=== PATIENT | male | born 1955 | race Caucasian/White ===

== ENCOUNTER 2021-08-09 16:43 | Inpatient (IN) | payer SELFPAY ==
[2021-08-09] MEDS ORDERED: Acetaminophen 325 MG TAB PO PRN (17:47)
[2021-08-09] MEDS ORDERED: Ondansetron PF 4 MG/2 ML Vial IVP PRN (17:47)
[2021-08-09] MEDS ORDERED: Senokot S 8.6-50 MG TAB PO PRN (17:47)
[2021-08-09] MEDS ORDERED: Bisacodyl 5 MG TAB PO PRN (17:47)
[2021-08-09] MEDS ORDERED: Calcium Carbonate 500 MG ChewTAB PO PRN (17:47)
[2021-08-09] MEDS ORDERED: Benzocaine (Dental) 7 GM TUBE TOP PRN (18:16)
[2021-08-09] MEDS ORDERED: Multivit, Therapeutic 1 TAB PO SCH (18:30)
[2021-08-09] MEDS ORDERED: Folic Acid 1 MG TAB PO SCH (18:30)
[2021-08-09] MEDS ORDERED: Thiamine 100 MG TAB PO SCH (18:30)
[2021-08-09 18:40] VITALS: BMI 28.8
[2021-08-09] MEDS ORDERED: Dextrose 5% in Water 1,000 ML IV PRN (19:12)
[2021-08-09] MEDS ORDERED: Dextrose 50% Abboject 50 ML SYRINGE SLOW IVP PRN (19:12)
[2021-08-09] MEDS ORDERED: HumaLOG 300 UNITS/3 ML VIAL SC PRN ×2 (19:12)
[2021-08-09] MEDS ORDERED: ALPRAZolam 1 MG TAB PO PRN (19:17)
[2021-08-09] MEDS ORDERED: Albuterol 200 PUFF (6.7GM INHALER) INH PRN (19:20)
[2021-08-09] MEDS ORDERED: Sodium Chloride 0.9% 1,000 ML IV SCH (19:30)
[2021-08-09] MEDS ORDERED: Aspirin Chewable 81 MG TAB PO SCH (20:00)
[2021-08-09 20:07] LABS: Troponin I Less than 0.010 ng/mL (< 0.028)
[2021-08-09] MEDS: Atorvastatin Calcium 40 MG TAB PO SCH (21:23)
[2021-08-09] MEDS: Ampicillin/Sulbactam 3 GM in Sodium Chloride 0.9% 100 ML IVPB SCH (23:17)
[2021-08-09 23:48] LABS: Amphetamine Not Detected (NotDetected); Barbiturates Screen Not Detected (NotDetected); Benzodiazepine Screen Not Detected (NotDetected); Cocaine Metabolite Screen Not Detected (NotDetected); Methadone Not Detected (NotDetected); Methamphetamine Not Detected (NotDetected); Opiate Screen Detected (NotDetected); Oxycodone Screen Not Detected (NotDetected); Phencyclidine (PCP) Not Detected (NotDetected); THC/Cannabinoid Screen Detected (NotDetected); Tricyclic Screen Not Detected (NotDetected)
[2021-08-10] MEDS: Ampicillin/Sulbactam 3 GM in Sodium Chloride 0.9% 100 ML IVPB SCH ×4 (05:46→23:33)
[2021-08-10] MEDS: HYDROcodone/Acetaminophen 5/325 mg Tablet PO PRN ×3 (05:52→20:52)
[2021-08-10 06:12] LABS: #Basophils 0.1 thou/uL (0.0-0.2); #Eosinphils 0.2 thou/uL (0.0-0.7); #Lymphocytes 1.8 thou/uL (1.20-3.40); #Monocytes 0.7 thou/uL (0.11-0.59); %Basophils 0.6 % (0.0-1.0); %Eosinophils 1.8 % (0.0-10.0); %Monocytes 6.7 % (0.0-10.0); %Neutrophils 71.9 % (42.0-75.0); Hemoglobin 15.2 g/dL (14.0-18.0); Mean Corpuscular HGB CONC 35.2 g/dL (32.0-36.0); Mean Corpuscular Volume 99.3 fL (78.0-98.0); Mean Platelet Volume 8.1 fL (7.4-10.4); Platelet Count 177 thou/uL (130-400); Red Blood Cell (RBC) Count 4.35 mill/uL (4.70-6.10); White Blood Cell (WBC) Count 9.7 thou/uL (4.8-10.8)
[2021-08-10 06:21] LABS: Hemoglobin A1c 8.1 % (4.0-6.0)
[2021-08-10 06:26] LABS: PTT 37.1 sec (22.9-36.1); Prothrombin Time 13.3 sec (12.0-14.7)
[2021-08-10 06:37] LABS: ALT (SGPT) 13 U/L (8-55); AST (SGOT) 13 U/L (5-34); Albumin 3.7 g/dL (3.4-4.8); Alkaline Phosphatase 68 U/L (40-110); Anion Gap 11 mmol/L (10-20); BUN (Urea Nitrogen) 7 mg/dL (8.4-25.7); Bilirubin, Direct 0.2 mg/dL (0.1-0.3); Bilirubin, Total 0.3 mg/dL (0.2-1.2); Calc. Creatinine Clearance 148 mL/min (70-130); Calcium 9.1 mg/dL (7.8-10.44); Carbon Dioxide 25 mmol/L (23-31); Cardiac Risk 4.3 (Less than 4.5); Chloride 105 mmol/L (98-107); Cholesterol 143 mg/dl (< 200 Desired); Glucose 179 mg/dL (80-115); HDL Cholesterol 33 mg/dL (>60 Neg Risk); LDL Cholesterol, Calculated 81 mg/dL; Magnesium 1.8 mg/dL (1.6-2.6); Phosphorus 3.5 mg/dL (2.3-4.7); Potassium 4.1 mmol/L (3.5-5.1); Protein, Total 6.3 g/dL (5.8-8.1); Sodium 137 mmol/L (136-145); Triglycerides 143 mg/dL (Less than 150)
[2021-08-10 06:39] LABS: Troponin I Less than 0.010 ng/mL (< 0.028)
[2021-08-10 07:00] LABS: Thyroid Stimulating Hormone 1.2222 uIU/mL (0.35-4.94)
[2021-08-10] MEDS: Thiamine 100 MG TAB PO SCH (07:56)
[2021-08-10] MEDS: Aspirin Chewable 81 MG TAB PO SCH (07:56)
[2021-08-10] MEDS: Multivit, Therapeutic 1 TAB PO SCH (07:57)
[2021-08-10] MEDS: Folic Acid 1 MG TAB PO SCH (07:57)
[2021-08-10] MEDS ORDERED: Iopamidol 370 76% 100 ML VIAL ONE (09:04)
[2021-08-10] MEDS: Chlorhexidine Gluconate 15 ML UDCUP SSP SCH (20:49)
[2021-08-10] MEDS: Atorvastatin Calcium 40 MG TAB PO SCH (20:49)
[2021-08-11 04:54] LABS: #Basophils 0.1 thou/uL (0.0-0.2); #Eosinphils 0.3 thou/uL (0.0-0.7); #Lymphocytes 2.3 thou/uL (1.20-3.40); #Monocytes 0.6 thou/uL (0.11-0.59); #Neutrophils 4.8 thou/uL (1.40-6.50); %Basophils 0.8 % (0.0-1.0); %Eosinophils 3.5 % (0.0-10.0); %Lymphocytes 29.1 % (21.0-51.0); %Monocytes 7.5 % (0.0-10.0); %Neutrophils 59.2 % (42.0-75.0); Hemoglobin 14.2 g/dL (14.0-18.0); Mean Corpuscular HGB CONC 34.2 g/dL (32.0-36.0); Mean Corpuscular Hemoglobin 33.8 pg (27.0-31.0); Mean Platelet Volume 7.8 fL (7.4-10.4); Platelet Count 189 thou/uL (130-400); RBC Distribution Width 12.9 % (11.5-14.5); Red Blood Cell (RBC) Count 4.19 mill/uL (4.70-6.10); White Blood Cell (WBC) Count 8.1 thou/uL (4.8-10.8)
[2021-08-11 05:24] LABS: Anion Gap 11 mmol/L (10-20); BUN (Urea Nitrogen) 6 mg/dL (8.4-25.7); Calc. Creatinine Clearance 165 mL/min (70-130); Calcium 8.7 mg/dL (7.8-10.44); Carbon Dioxide 27 mmol/L (23-31); Chloride 103 mmol/L (98-107); Glucose 159 mg/dL (80-115); Magnesium 1.8 mg/dL (1.6-2.6); Phosphorus 3.2 mg/dL (2.3-4.7); Potassium 4.1 mmol/L (3.5-5.1); Sodium 137 mmol/L (136-145)
[2021-08-11] MEDS: Ampicillin/Sulbactam 3 GM in Sodium Chloride 0.9% 100 ML IVPB SCH ×4 (06:10→23:12)
[2021-08-11] MEDS: Ondansetron ODT 4 MG TAB PO PRN (08:02)
[2021-08-11] MEDS: Multivit, Therapeutic 1 TAB PO SCH (08:02)
[2021-08-11] MEDS: HYDROcodone/Acetaminophen 5/325 mg Tablet PO PRN ×3 (08:02→20:32)
[2021-08-11] MEDS: Aspirin Chewable 81 MG TAB PO SCH (08:02)
[2021-08-11] MEDS: Folic Acid 1 MG TAB PO SCH (08:02)
[2021-08-11] MEDS: Thiamine 100 MG TAB PO SCH (08:03)
[2021-08-11] MEDS: Chlorhexidine Gluconate 15 ML UDCUP SSP SCH ×3 (08:31→20:33)
[2021-08-11] MEDS ORDERED: Fioricet 325/50/40 mg Tablet PO PRN (12:35)
[2021-08-11] MEDS: Atorvastatin Calcium 40 MG TAB PO SCH (20:32)
[2021-08-12 04:43] LABS: #Eosinphils 0.4 thou/uL (0.0-0.7); #Lymphocytes 2.4 thou/uL (1.20-3.40); #Monocytes 0.6 thou/uL (0.11-0.59); #Neutrophils 4.7 thou/uL (1.40-6.50); %Basophils 0.4 % (0.0-1.0); %Eosinophils 4.5 % (0.0-10.0); %Lymphocytes 30.1 % (21.0-51.0); %Monocytes 6.9 % (0.0-10.0); %Neutrophils 58.1 % (42.0-75.0); Hemoglobin 14.2 g/dL (14.0-18.0); Mean Corpuscular HGB CONC 33.8 g/dL (32.0-36.0); Mean Corpuscular Hemoglobin 33.5 pg (27.0-31.0); Mean Platelet Volume 7.8 fL (7.4-10.4); Platelet Count 213 thou/uL (130-400); RBC Distribution Width 12.9 % (11.5-14.5); Red Blood Cell (RBC) Count 4.25 mill/uL (4.70-6.10); White Blood Cell (WBC) Count 8.1 thou/uL (4.8-10.8)
[2021-08-12 05:03] LABS: Anion Gap 11 mmol/L (10-20); BUN (Urea Nitrogen) 7 mg/dL (8.4-25.7); Calc. Creatinine Clearance 138 mL/min (70-130); Calcium 9.1 mg/dL (7.8-10.44); Carbon Dioxide 28 mmol/L (23-31); Chloride 101 mmol/L (98-107); Glucose 175 mg/dL (80-115); Magnesium 1.8 mg/dL (1.6-2.6); Phosphorus 3.7 mg/dL (2.3-4.7); Sodium 136 mmol/L (136-145)
[2021-08-12] MEDS: Ampicillin/Sulbactam 3 GM in Sodium Chloride 0.9% 100 ML IVPB SCH ×2 (05:36→11:03)
[2021-08-12] MEDS: HYDROcodone/Acetaminophen 5/325 mg Tablet PO PRN (07:45)
[2021-08-12] MEDS: Ondansetron ODT 4 MG TAB PO PRN (07:45)
[2021-08-12] MEDS: Aspirin Chewable 81 MG TAB PO SCH (07:45)
[2021-08-12] MEDS: Chlorhexidine Gluconate 15 ML UDCUP SSP SCH (07:46)
[2021-08-12] MEDS: Multivit, Therapeutic 1 TAB PO SCH (10:03)
[2021-08-12] MEDS: Folic Acid 1 MG TAB PO SCH (10:03)
[2021-08-12] MEDS: Thiamine 100 MG TAB PO SCH (10:03)
[2021-08-12 11:12] VITALS: BP 105/52; TEMP 97.9
[2021-08-12] MEDS ORDERED: Regadenoson 0.4 MG/5 ML SYRINGE ONE (13:53)
== END 2021-08-12 14:50 | disposition home or self-care (01) | DRG 158 ==
LOC: 2SW 17:34 → OBSVTOIN 17:47
PROVIDERS: ADMIT Family Medicine; ATTEND Hospitalist
DX: K04.7 Periapical abscess without sinus (principal); E87.2 Acidosis; F10.10 Alcohol abuse, uncomplicated; J44.9 Chronic obstructive pulmonary disease, unspecified; E11.65 Type 2 diabetes mellitus with hyperglycemia; I10 Essential (primary) hypertension; F17.210 Nicotine dependence, cigarettes, uncomplicated; J02.9 Acute pharyngitis, unspecified; R79.89 Other specified abnormal findings of blood chemistry; I77.819 Aortic ectasia, unspecified site; E78.2 Mixed hyperlipidemia; R16.0 Hepatomegaly, not elsewhere classified; F41.9 Anxiety disorder, unspecified; F32.A Depression, unspecified; Z79.84 Long term (current) use of oral hypoglycemic drugs; Z90.89 Acquired absence of other organs
CPT/HCPCS: 36415; 36416; 70450; 70486; 76705; 78452; 80048; 80061; 80076; 80306; 82607; 82746; 83036; 83690; 83735; 84100; 84443; 84484; 85025; 85610; 85730; 86850; 86900; 86901; 93017; 93306; A9500; J0295; J1815; J2405; J3490; J7050; Q0162; Q9967

== ENCOUNTER 2023-04-02 01:44 | Inpatient (IN) | payer SELFPAY ==
[2023-04-02 03:35] LABS: Bacteria/HPF None Seen HPF (None Seen); Bilirubin Negative (Negative); Blood, Urine Negative (Negative); CAUTI Indications for Culture Alt mental st,lethar; Clarity Clear (Clear); Glucose, Urine (Dipstick) Greater than 1000 mg/dL (Negative); Ketone, Urine Negative (Negative); Leukocyte Negative Leu/uL (Negative); Nitrite Negative (Negative); Protein, Urine (Dipstick) Negative (Neg-Trace); RBC/HPF 0-3 HPF (0-3); Specific Gravity, Urine 1.003 (1.002-1.036); Squamous Epithelial None Seen HPF (0-3); Urobilinogen Normal mg/dL (Less than 2); WBC/HPF 0-3 HPF (0-3); pH, Urine 5.5 (5.0-9.0)
[2023-04-02 03:40] LABS: Urine Culture Reflex No No
[2023-04-02 03:42] LABS: Troponin I Less than 0.010 ng/mL (< 0.028)
[2023-04-02 03:45] LABS: Magnesium 1.8 mg/dL (1.6-2.6)
[2023-04-02 06:49] LABS: Troponin I Less than 0.010 ng/mL (< 0.028)
[2023-04-02 07:47] VITALS: BMI 32.4
[2023-04-02] MEDS ORDERED: Acetaminophen 325 MG TAB PO PRN (07:57)
[2023-04-02] MEDS ORDERED: Ondansetron ODT 4 MG TAB PO PRN (08:00)
[2023-04-02] MEDS ORDERED: Lorazepam 2 MG/ML VIAL IM PRN (08:00)
[2023-04-02] MEDS ORDERED: Electrolyte Replacement Protocol 1 EACH FS SCH (08:00)
[2023-04-02] MEDS ORDERED: Lorazepam 1 MG TAB PO PRN (08:00)
[2023-04-02] MEDS ORDERED: Electrolyte Replacement Protocol FS PRN (08:15)
[2023-04-02] MEDS ORDERED: Magnesium 2 GM/50 ML(in water) 2 GM in Premix 1 BAG IVPB SCH (08:15)
[2023-04-02] MEDS ORDERED: Piperacillin/Tazobactam 3.375 GM in Sodium Chloride 0.9% 100 ML IVPB SCH (08:15)
[2023-04-02] MEDS ORDERED: Folic Acid 1 MG TAB ONE (08:21)
[2023-04-02] MEDS ORDERED: Nicotine 14 MG PATCH ONE (08:21)
[2023-04-02] MEDS ORDERED: Thiamine HCl 200 MG/2 ML VIAL ONE (08:21)
[2023-04-02] MEDS ORDERED: Lorazepam 1 MG TAB ONE (08:21)
[2023-04-02] MEDS ORDERED: Multivit, Therapeutic 1 TAB ONE (08:21)
[2023-04-02] MEDS ORDERED: Magnesium 2 GM/50 ML BAG (IN WATER) ONE (08:22)
[2023-04-02] MEDS: Lactated Ringer's 1,000 ML IV SCH ×2 (08:26→16:24)
[2023-04-02] MEDS: Multivit, Therapeutic 1 TAB PO SCH (08:29)
[2023-04-02] MEDS: Lorazepam 1 MG TAB PO SCH ×3 (08:29→21:13)
[2023-04-02] MEDS: Nicotine 14 MG PATCH TD SCH (08:29)
[2023-04-02] MEDS: Folic Acid 1 MG TAB PO SCH (08:29)
[2023-04-02] MEDS: Thiamine HCl 200 MG/2 ML VIAL SLOW IVP SCH (08:30)
[2023-04-02] MEDS ORDERED: Glucagon 1 MG/ML KIT IM PRN (08:33)
[2023-04-02] MEDS ORDERED: Dextrose 5% in Water 1,000 ML IV PRN (08:33)
[2023-04-02] MEDS ORDERED: Dextrose 50% Abboject 50 ML SYRINGE SLOW IVP PRN (08:33)
[2023-04-02] MEDS ORDERED: Sodium Chloride 0.9% 100 ML ONE (08:44)
[2023-04-02] MEDS ORDERED: Piperacillin/Tazobactam 3.375 GM VIAL ONE (08:44)
[2023-04-02] MEDS: Sodium Chloride 0.9% 1,000 ML IV SCH ×2 (09:07→21:13)
[2023-04-02 09:10] LABS: Hemoglobin A1c 8.5 % (4.0-6.0)
[2023-04-02 09:22] LABS: Troponin I Less than 0.010 ng/mL (< 0.028)
[2023-04-02] MEDS: Piperacillin/Tazobactam 3.375 GM in Sodium Chloride 0.9% 100 ML IVPB SCH ×2 (13:18→21:13)
[2023-04-02] MEDS ORDERED: FLU VACC QS2023(65UP)/MF59C/PF 60 MCG/0.5 ML SYRINGE IM ONE (17:45)
[2023-04-02] MEDS ORDERED: Simvastatin 10 MG TAB PO SCH (18:15)
[2023-04-02] MEDS: ALPRAZolam 1 MG TAB PO PRN (18:26)
[2023-04-02] MEDS: Sertraline 100 MG TAB PO SCH (18:32)
[2023-04-02] MEDS: Metoprolol Tartrate 25 MG TAB PO SCH (18:32)
[2023-04-02] MEDS ORDERED: Ipratropium/Albuterol 3 ML NEB NEB PRN (18:41)
[2023-04-02] MEDS: traMADol HCl 50 MG TAB PO PRN (21:30)
[2023-04-03] MEDS: Lorazepam 1 MG TAB PO SCH ×4 (02:57→20:44)
[2023-04-03] MEDS: traMADol HCl 50 MG TAB PO PRN ×4 (03:00→22:31)
[2023-04-03 05:01] LABS: Anion Gap 13 mmol/L (10-20); BUN (Urea Nitrogen) 5 mg/dL (8.4-25.7); Calc. Creatinine Clearance 162 mL/min (70-130); Calcium 8.1 mg/dL (7.8-10.44); Carbon Dioxide 25 mmol/L (23-31); Chloride 100 mmol/L (98-107); Estimated GFR 104; Glucose 238 mg/dL (80-115); Potassium 4.5 mmol/L (3.5-5.1); Sodium 133 mmol/L (136-145)
[2023-04-03] MEDS: Piperacillin/Tazobactam 3.375 GM in Sodium Chloride 0.9% 100 ML IVPB SCH ×2 (05:36→13:21)
[2023-04-03] MEDS: HumaLOG 300 UNITS/3 ML VIAL SC PRN ×3 (06:09→18:18)
[2023-04-03 07:25] LABS: #Basophils 0.1 thou/uL (0.0-0.2); #Eosinphils 0.2 thou/uL (0.0-0.7); #Monocytes 0.6 thou/uL (0.11-0.59); #Neutrophils 5.4 thou/uL (1.40-6.50); %Basophils 0.7 % (0.0-1.0); %Eosinophils 2.6 % (0.0-10.0); %Lymphocytes 12.1 % (21.0-51.0); %Monocytes 8.9 % (0.0-10.0); %Neutrophils 75.1 % (42.0-75.0); Hematocrit 41.2 % (42.0-52.0); Hemoglobin 14.2 g/dL (14.0-18.0); Mean Corpuscular HGB CONC 34.5 g/dL (32.0-36.0); Mean Corpuscular Hemoglobin 36.1 pg (27.0-31.0); Mean Corpuscular Volume 104.8 fl (78.0-98.0); Platelet Count 122 10x3/uL (130-400); RBC Distribution Width 12.6 % (11.5-14.5); Red Blood Cell (RBC) Count 3.93 mill/uL (4.70-6.10); White Blood Cell (WBC) Count 7.2 10x3/uL (4.8-10.8)
[2023-04-03] MEDS ORDERED: Magnesium 2 GM/50 ML(in water) 2 GM in Premix 1 BAG IVPB SCH (08:00)
[2023-04-03] MEDS: Metoprolol Tartrate 25 MG TAB PO SCH ×2 (08:21→22:19)
[2023-04-03] MEDS: ALPRAZolam 1 MG TAB PO PRN (08:22)
[2023-04-03] MEDS: Lorazepam 1 MG TAB PO PRN ×2 (08:23→18:18)
[2023-04-03] MEDS: Thiamine HCl 200 MG/2 ML VIAL SLOW IVP SCH (08:23)
[2023-04-03] MEDS: Multivit, Therapeutic 1 TAB PO SCH (08:23)
[2023-04-03] MEDS: Sertraline 100 MG TAB PO SCH (08:24)
[2023-04-03] MEDS: Folic Acid 1 MG TAB PO SCH (08:24)
[2023-04-03] MEDS: Nicotine 14 MG PATCH TD SCH (08:25)
[2023-04-03] MEDS ORDERED: TETANUS, DIPHTHERIA TOX,ADULT (TDVAX) 0.5 ML VIAL IM ONE (13:19)
[2023-04-03] MEDS: Ampicillin/Sulbactam 3 GM in Sodium Chloride 0.9% 100 ML IVPB SCH (18:17)
[2023-04-03] MEDS: Simvastatin 10 MG TAB PO SCH (22:20)
[2023-04-04] MEDS: Lorazepam 1 MG TAB PO PRN (00:13)
[2023-04-04] MEDS: Ampicillin/Sulbactam 3 GM in Sodium Chloride 0.9% 100 ML IVPB SCH ×5 (00:14→23:58)
[2023-04-04] MEDS: Lorazepam 1 MG TAB PO SCH ×2 (03:16→08:11)
[2023-04-04] MEDS: traMADol HCl 50 MG TAB PO PRN ×3 (03:16→23:58)
[2023-04-04 05:52] LABS: #Eosinphils 0.2 thou/uL (0.0-0.7); #Monocytes 0.7 thou/uL (0.11-0.59); #Neutrophils 5.9 thou/uL (1.40-6.50); %Basophils 0.5 % (0.0-1.0); %Eosinophils 2.8 % (0.0-10.0); %Lymphocytes 12.8 % (21.0-51.0); %Monocytes 8.4 % (0.0-10.0); Hematocrit 40.3 % (42.0-52.0); Hemoglobin 14.3 g/dL (14.0-18.0); Mean Corpuscular HGB CONC 35.5 g/dL (32.0-36.0); Mean Corpuscular Hemoglobin 36.4 pg (27.0-31.0); Mean Corpuscular Volume 102.5 fl (78.0-98.0); Mean Platelet Volume 10.5 fL (7.4-10.4); Platelet Count 148 10x3/uL (130-400); RBC Distribution Width 12.2 % (11.5-14.5); Red Blood Cell (RBC) Count 3.93 mill/uL (4.70-6.10); White Blood Cell (WBC) Count 7.8 10x3/uL (4.8-10.8)
[2023-04-04] MEDS: HumaLOG 300 UNITS/3 ML VIAL SC PRN ×2 (06:21→20:50)
[2023-04-04 07:54] LABS: Anion Gap 14 mmol/L (10-20); BUN (Urea Nitrogen) 5 mg/dL (8.4-25.7); Calc. Creatinine Clearance 169 mL/min (70-130); Calcium 8.2 mg/dL (7.8-10.44); Carbon Dioxide 23 mmol/L (23-31); Chloride 96 mmol/L (98-107); Estimated GFR 106; Glucose 217 mg/dL (80-115); Potassium 3.9 mmol/L (3.5-5.1); Sodium 129 mmol/L (136-145)
[2023-04-04] MEDS ORDERED: Lorazepam 1 MG TAB PO PRN (08:01)
[2023-04-04] MEDS: Multivit, Therapeutic 1 TAB PO SCH (08:10)
[2023-04-04] MEDS: Metoprolol Tartrate 25 MG TAB PO SCH ×2 (08:10→20:31)
[2023-04-04] MEDS: Nicotine 14 MG PATCH TD SCH (08:10)
[2023-04-04] MEDS: Thiamine HCl 200 MG/2 ML VIAL SLOW IVP SCH (08:10)
[2023-04-04] MEDS: Sertraline 100 MG TAB PO SCH (08:11)
[2023-04-04] MEDS: Folic Acid 1 MG TAB PO SCH (08:11)
[2023-04-04] MEDS ORDERED: Iopamidol 370 76% 100 ML VIAL ONE (10:45)
[2023-04-04] MEDS: ALPRAZolam 1 MG TAB PO PRN (11:51)
[2023-04-04] MEDS: chlordiazePOXIDE HCl 25 MG CAP PO SCH ×2 (13:48→20:31)
[2023-04-04] MEDS ORDERED: CEFAZOLIN 2 GM in Sodium Chloride 0.9% 100 ML IVPB SCH (15:00)
[2023-04-04] MEDS: Simvastatin 10 MG TAB PO SCH (20:31)
[2023-04-05 05:50] LABS: #Basophils 0.1 thou/uL (0.0-0.2); #Eosinphils 0.3 thou/uL (0.0-0.7); #Monocytes 0.6 thou/uL (0.11-0.59); #Neutrophils 4.2 thou/uL (1.40-6.50); %Basophils 0.9 % (0.0-1.0); %Monocytes 8.3 % (0.0-10.0); %Neutrophils 63.2 % (42.0-75.0); Hematocrit 41.5 % (42.0-52.0); Hemoglobin 14.5 g/dL (14.0-18.0); Mean Corpuscular HGB CONC 34.9 g/dL (32.0-36.0); Mean Corpuscular Hemoglobin 35.7 pg (27.0-31.0); Mean Corpuscular Volume 102.2 fl (78.0-98.0); Mean Platelet Volume 9.9 fL (7.4-10.4); Platelet Count 154 10x3/uL (130-400); RBC Distribution Width 12.4 % (11.5-14.5); Red Blood Cell (RBC) Count 4.06 mill/uL (4.70-6.10); White Blood Cell (WBC) Count 6.7 10x3/uL (4.8-10.8)
[2023-04-05 06:13] LABS: Anion Gap 13 mmol/L (10-20); BUN (Urea Nitrogen) 6 mg/dL (8.4-25.7); Calc. Creatinine Clearance 162 mL/min (70-130); Calcium 8.4 mg/dL (7.8-10.44); Carbon Dioxide 26 mmol/L (23-31); Chloride 98 mmol/L (98-107); Estimated GFR 104; Glucose 154 mg/dL (80-115); Potassium 3.9 mmol/L (3.5-5.1); Sodium 133 mmol/L (136-145)
[2023-04-05] MEDS: Ampicillin/Sulbactam 3 GM in Sodium Chloride 0.9% 100 ML IVPB SCH ×3 (07:15→17:40)
[2023-04-05] MEDS ORDERED: Lorazepam 0.5 MG TAB PO PRN (08:01)
[2023-04-05] MEDS: ALPRAZolam 1 MG TAB PO PRN (08:49)
[2023-04-05] MEDS: Folic Acid 1 MG TAB PO SCH (08:50)
[2023-04-05] MEDS: Sertraline 100 MG TAB PO SCH (08:50)
[2023-04-05] MEDS: Nicotine 14 MG PATCH TD SCH (08:50)
[2023-04-05] MEDS: chlordiazePOXIDE HCl 25 MG CAP PO SCH ×3 (08:50→20:55)
[2023-04-05] MEDS: Metoprolol Tartrate 25 MG TAB PO SCH ×2 (08:50→20:55)
[2023-04-05] MEDS: Multivit, Therapeutic 1 TAB PO SCH (08:50)
[2023-04-05] MEDS: Thiamine 100 MG TAB PO SCH (08:50)
[2023-04-05] MEDS: HumaLOG 300 UNITS/3 ML VIAL SC PRN (17:05)
[2023-04-05] MEDS: Simvastatin 10 MG TAB PO SCH (20:55)
[2023-04-05] MEDS: traMADol HCl 50 MG TAB PO PRN (21:27)
[2023-04-06] MEDS: Ampicillin/Sulbactam 3 GM in Sodium Chloride 0.9% 100 ML IVPB SCH ×4 (00:43→18:13)
[2023-04-06 05:43] LABS: #Basophils 0.1 thou/uL (0.0-0.2); #Eosinphils 0.3 thou/uL (0.0-0.7); #Monocytes 0.7 thou/uL (0.11-0.59); #Neutrophils 3.7 thou/uL (1.40-6.50); %Basophils 0.8 % (0.0-1.0); %Eosinophils 3.9 % (0.0-10.0); %Lymphocytes 26.5 % (21.0-51.0); %Monocytes 11.2 % (0.0-10.0); Hematocrit 41.4 % (42.0-52.0); Hemoglobin 14.4 g/dL (14.0-18.0); Mean Corpuscular HGB CONC 34.8 g/dL (32.0-36.0); Mean Corpuscular Volume 103.5 fl (78.0-98.0); Mean Platelet Volume 9.9 fL (7.4-10.4); Platelet Count 175 10x3/uL (130-400); RBC Distribution Width 12.5 % (11.5-14.5); White Blood Cell (WBC) Count 6.5 10x3/uL (4.8-10.8)
[2023-04-06 06:09] LABS: Anion Gap 11 mmol/L (10-20); BUN (Urea Nitrogen) 7 mg/dL (8.4-25.7); Calc. Creatinine Clearance 162 mL/min (70-130); Calcium 8.5 mg/dL (7.8-10.44); Carbon Dioxide 29 mmol/L (23-31); Chloride 98 mmol/L (98-107); Estimated GFR 104; Glucose 200 mg/dL (80-115); Potassium 3.5 mmol/L (3.5-5.1); Sodium 134 mmol/L (136-145)
[2023-04-06] MEDS: chlordiazePOXIDE HCl 25 MG CAP PO SCH ×3 (08:57→19:45)
[2023-04-06] MEDS: Nicotine 14 MG PATCH TD SCH (08:57)
[2023-04-06] MEDS: Multivit, Therapeutic 1 TAB PO SCH (08:59)
[2023-04-06] MEDS: Metoprolol Tartrate 25 MG TAB PO SCH ×2 (08:59→19:45)
[2023-04-06] MEDS: Thiamine 100 MG TAB PO SCH (08:59)
[2023-04-06] MEDS: Sertraline 100 MG TAB PO SCH (08:59)
[2023-04-06] MEDS: Folic Acid 1 MG TAB PO SCH (09:00)
[2023-04-06] MEDS: Potassium Chloride 20 MEQ in Premix 1 BAG IVPB SCH ×2 (09:01→11:19)
[2023-04-06] MEDS: traMADol HCl 50 MG TAB PO PRN ×2 (09:06→19:46)
[2023-04-06] MEDS: ALPRAZolam 1 MG TAB PO PRN (12:16)
[2023-04-06] MEDS: HumaLOG 300 UNITS/3 ML VIAL SC PRN ×3 (12:17→19:49)
[2023-04-06] MEDS: Simvastatin 10 MG TAB PO SCH (19:45)
[2023-04-07] MEDS: Ampicillin/Sulbactam 3 GM in Sodium Chloride 0.9% 100 ML IVPB SCH ×4 (00:05→18:00)
[2023-04-07] MEDS: HumaLOG 300 UNITS/3 ML VIAL SC PRN ×4 (05:55→21:03)
[2023-04-07 08:33] LABS: #Eosinphils 0.2 thou/uL (0.0-0.7); #Monocytes 0.6 thou/uL (0.11-0.59); #Neutrophils 3.8 thou/uL (1.40-6.50); %Basophils 0.7 % (0.0-1.0); %Eosinophils 3.3 % (0.0-10.0); %Lymphocytes 20.6 % (21.0-51.0); %Monocytes 10.7 % (0.0-10.0); %Neutrophils 64.2 % (42.0-75.0); Hematocrit 40.6 % (42.0-52.0); Hemoglobin 14.2 g/dL (14.0-18.0); Mean Corpuscular Hemoglobin 36.1 pg (27.0-31.0); Mean Corpuscular Volume 103.3 fl (78.0-98.0); Mean Platelet Volume 9.6 fL (7.4-10.4); Platelet Count 176 10x3/uL (130-400); RBC Distribution Width 12.4 % (11.5-14.5); Red Blood Cell (RBC) Count 3.93 mill/uL (4.70-6.10)
[2023-04-07] MEDS: Multivit, Therapeutic 1 TAB PO SCH (08:41)
[2023-04-07] MEDS: Nicotine 14 MG PATCH TD SCH (08:41)
[2023-04-07] MEDS: Metoprolol Tartrate 25 MG TAB PO SCH ×2 (08:41→21:01)
[2023-04-07] MEDS: chlordiazePOXIDE HCl 25 MG CAP PO SCH ×3 (08:41→21:00)
[2023-04-07] MEDS: Folic Acid 1 MG TAB PO SCH (08:41)
[2023-04-07] MEDS: Thiamine 100 MG TAB PO SCH (08:42)
[2023-04-07] MEDS: Sertraline 100 MG TAB PO SCH (08:42)
[2023-04-07] MEDS: ALPRAZolam 1 MG TAB PO PRN (08:46)
[2023-04-07 08:58] LABS: Anion Gap 13 mmol/L (10-20); BUN (Urea Nitrogen) 6 mg/dL (8.4-25.7); Calc. Creatinine Clearance 146 mL/min (70-130); Calcium 8.4 mg/dL (7.8-10.44); Carbon Dioxide 26 mmol/L (23-31); Chloride 99 mmol/L (98-107); Estimated GFR 101; Glucose 266 mg/dL (80-115); Potassium 3.9 mmol/L (3.5-5.1); Sodium 134 mmol/L (136-145)
[2023-04-07] MEDS ORDERED: Losartan 25 MG TAB PO SCH (17:15)
[2023-04-07] MEDS: traMADol HCl 50 MG TAB PO PRN (18:11)
[2023-04-07] MEDS: Heparin 5,000 UNITS/ML VIAL SC SCH (21:00)
[2023-04-07] MEDS: Simvastatin 10 MG TAB PO SCH (21:00)
[2023-04-08] MEDS: Ampicillin/Sulbactam 3 GM in Sodium Chloride 0.9% 100 ML IVPB SCH ×4 (00:33→17:47)
[2023-04-08] MEDS: traMADol HCl 50 MG TAB PO PRN ×3 (01:22→20:44)
[2023-04-08] MEDS: HumaLOG 300 UNITS/3 ML VIAL SC PRN ×4 (05:21→20:50)
[2023-04-08 07:34] LABS: #Basophils 0.1 thou/uL (0.0-0.2); #Eosinphils 0.2 thou/uL (0.0-0.7); #Monocytes 0.7 thou/uL (0.11-0.59); #Neutrophils 3.5 thou/uL (1.40-6.50); %Basophils 0.8 % (0.0-1.0); %Eosinophils 3.7 % (0.0-10.0); %Lymphocytes 27.7 % (21.0-51.0); %Neutrophils 56.2 % (42.0-75.0); Hematocrit 42.2 % (42.0-52.0); Hemoglobin 14.8 g/dL (14.0-18.0); Mean Corpuscular HGB CONC 35.1 g/dL (32.0-36.0); Mean Corpuscular Hemoglobin 35.6 pg (27.0-31.0); Mean Corpuscular Volume 101.4 fl (78.0-98.0); Mean Platelet Volume 9.8 fL (7.4-10.4); Platelet Count 185 10x3/uL (130-400); RBC Distribution Width 12.2 % (11.5-14.5); Red Blood Cell (RBC) Count 4.16 mill/uL (4.70-6.10); White Blood Cell (WBC) Count 6.2 10x3/uL (4.8-10.8)
[2023-04-08 07:59] LABS: ALT (SGPT) 50 U/L (8-55); AST (SGOT) 54 U/L (5-34); Albumin 3.4 g/dL (3.4-4.8); Alkaline Phosphatase 76 U/L (40-110); Anion Gap 11 mmol/L (10-20); BUN (Urea Nitrogen) 6 mg/dL (8.4-25.7); Bilirubin, Total 0.7 mg/dL (0.2-1.2); Calc. Creatinine Clearance 164 mL/min (70-130); Calcium 8.5 mg/dL (7.8-10.44); Carbon Dioxide 27 mmol/L (23-31); Cardiac Risk 3.3 (Less than 4.5); Chloride 102 mmol/L (98-107); Cholesterol 130 mg/dl (< 200 Desired); Estimated GFR 105; Globulin 2.5 g/dL (2.4-3.5); Glucose 179 mg/dL (80-115); HDL Cholesterol 39 mg/dL (>60 Neg Risk); LDL Cholesterol, Calculated 71 mg/dL; Magnesium 1.9 mg/dL (1.6-2.6); Potassium 3.7 mmol/L (3.5-5.1); Protein, Total 5.9 g/dL (5.8-8.1); Sodium 136 mmol/L (136-145); Triglycerides 102 mg/dL (Less than 150)
[2023-04-08] MEDS: Nicotine 14 MG PATCH TD SCH (09:02)
[2023-04-08] MEDS: Metoprolol Tartrate 25 MG TAB PO SCH ×2 (09:02→20:37)
[2023-04-08] MEDS: Alogliptin 25 MG TAB PO SCH (09:02)
[2023-04-08] MEDS: Thiamine 100 MG TAB PO SCH (09:03)
[2023-04-08] MEDS: Folic Acid 1 MG TAB PO SCH (09:03)
[2023-04-08] MEDS: Sertraline 100 MG TAB PO SCH (09:03)
[2023-04-08] MEDS: chlordiazePOXIDE HCl 25 MG CAP PO SCH ×3 (09:03→20:36)
[2023-04-08] MEDS: Losartan 25 MG TAB PO SCH (09:03)
[2023-04-08] MEDS: Heparin 5,000 UNITS/ML VIAL SC SCH ×2 (09:04→20:37)
[2023-04-08] MEDS: Multivit, Therapeutic 1 TAB PO SCH (09:14)
[2023-04-08] MEDS ORDERED: Magnesium 2 GM/50 ML(in water) 2 GM in Premix 1 BAG IVPB SCH (11:15)
[2023-04-08] MEDS: ALPRAZolam 1 MG TAB PO PRN (17:49)
[2023-04-08] MEDS: Simvastatin 10 MG TAB PO SCH (20:36)
[2023-04-09] MEDS: Ampicillin/Sulbactam 3 GM in Sodium Chloride 0.9% 100 ML IVPB SCH ×3 (00:20→12:15)
[2023-04-09] MEDS: HumaLOG 300 UNITS/3 ML VIAL SC PRN ×3 (05:46→12:31)
[2023-04-09 06:27] LABS: #Basophils 0.1 thou/uL (0.0-0.2); #Eosinphils 0.2 thou/uL (0.0-0.7); #Monocytes 0.8 thou/uL (0.11-0.59); #Neutrophils 4.1 thou/uL (1.40-6.50); %Basophils 0.8 % (0.0-1.0); %Eosinophils 3.4 % (0.0-10.0); %Lymphocytes 26.2 % (21.0-51.0); Hematocrit 44.4 % (42.0-52.0); Hemoglobin 15.2 g/dL (14.0-18.0); Mean Corpuscular HGB CONC 34.2 g/dL (32.0-36.0); Mean Corpuscular Hemoglobin 35.2 pg (27.0-31.0); Mean Corpuscular Volume 102.8 fl (78.0-98.0); Mean Platelet Volume 10.2 fL (7.4-10.4); Platelet Count 196 10x3/uL (130-400); RBC Distribution Width 12.2 % (11.5-14.5); Red Blood Cell (RBC) Count 4.32 mill/uL (4.70-6.10); White Blood Cell (WBC) Count 7.1 10x3/uL (4.8-10.8)
[2023-04-09 06:51] LABS: Anion Gap 12 mmol/L (10-20); BUN (Urea Nitrogen) 6 mg/dL (8.4-25.7); Calc. Creatinine Clearance 153 mL/min (70-130); Calcium 8.4 mg/dL (7.8-10.44); Carbon Dioxide 24 mmol/L (23-31); Chloride 103 mmol/L (98-107); Estimated GFR 102; Glucose 191 mg/dL (80-115); Magnesium 1.9 mg/dL (1.6-2.6); Phosphorus 3.3 mg/dL (2.3-4.7); Potassium 4.1 mmol/L (3.5-5.1); Sodium 135 mmol/L (136-145)
[2023-04-09 09:01] VITALS: BP 146/79; TEMP 98.1
[2023-04-09] MEDS: Nicotine 14 MG PATCH TD SCH (12:16)
[2023-04-09] MEDS: Metoprolol Tartrate 25 MG TAB PO SCH (12:16)
[2023-04-09] MEDS: Heparin 5,000 UNITS/ML VIAL SC SCH (12:16)
[2023-04-09] MEDS: Folic Acid 1 MG TAB PO SCH (12:16)
[2023-04-09] MEDS: Multivit, Therapeutic 1 TAB PO SCH (12:16)
[2023-04-09] MEDS: chlordiazePOXIDE HCl 25 MG CAP PO SCH ×2 (12:16→16:36)
[2023-04-09] MEDS: Alogliptin 25 MG TAB PO SCH (12:16)
[2023-04-09] MEDS: Sertraline 100 MG TAB PO SCH (12:16)
[2023-04-09] MEDS: Thiamine 100 MG TAB PO SCH (12:16)
[2023-04-09] MEDS: Losartan 25 MG TAB PO SCH (12:16)
[2023-04-09] MEDS: ALPRAZolam 1 MG TAB PO PRN (13:56)
[2023-04-09] MEDS ORDERED: Magnesium 2 GM/50 ML(in water) 2 GM in Premix 1 BAG IVPB SCH (14:15)
== END 2023-04-09 16:15 | disposition home or self-care (01) | DRG 603 ==
LOC: ERS 01:44 → ERHOLD 05:34 → 2SE 12:05 → MSONC 04-05 10:37
PROVIDERS: ADMIT Student in an Organized Health Care Education/Training Program; ATTEND Hospitalist
PROC: 3E0234Z Introduction of Serum, Toxoid and Vaccine into Muscle, Percutaneous Approach (ICD-10-PCS; principal; 2023-04-03)
DX: L03.114 Cellulitis of left upper limb (principal); F10.139 Alcohol abuse with withdrawal, unspecified; E11.9 Type 2 diabetes mellitus without complications; I10 Essential (primary) hypertension; E78.5 Hyperlipidemia, unspecified; J44.9 Chronic obstructive pulmonary disease, unspecified; F41.9 Anxiety disorder, unspecified; S41.152A Open bite of left upper arm, initial encounter; K42.9 Umbilical hernia without obstruction or gangrene; R14.0 Abdominal distension (gaseous); F32.A Depression, unspecified; F17.210 Nicotine dependence, cigarettes, uncomplicated; Z79.899 Other long term (current) drug therapy; Z79.84 Long term (current) use of oral hypoglycemic drugs; Z90.89 Acquired absence of other organs; Z98.890 Other specified postprocedural states; Z71.41 Alcohol abuse counseling and surveillance of alcoholic; Z23 Encounter for immunization
CPT/HCPCS: 36415; 36416; 70450; 71045; 74176; 80048; 80053; 80061; 81001; 82140; 83036; 83735; 83880; 84100; 84132; 84484; 85025; 87040; 90714; 93005; 94640; 96360; 97139; J0295; J1644; J1815; J2543; J3411; J3475; J3480; J3490; J7050; J7120; J7620; Q0162; Q9967